=== PATIENT | female | born 1985 | race African-American/Black ===

== ENCOUNTER 2016-10-18 06:55 | Inpatient (IN) | payer OTHER ==
[2016-10-18] MEDS ORDERED: DEXTROSE 5%-LACTATED RINGERS 1,000 ML IV ONE (07:15)
[2016-10-18] MEDS ORDERED: BENZOCAINE 28 GM HEMORRHOIDAL OINTMENT TP PRN (07:18)
[2016-10-18] MEDS ORDERED: METHYLERGONOVINE MALEATE 0.2 MG/1 ML AMP IM PRN (07:18)
[2016-10-18] MEDS ORDERED: BISACODYL 10 MG SUPP.RECT RC PRN (07:18)
[2016-10-18] MEDS ORDERED: WITCH HAZEL 50% (TUCKS) 40 PAD/JAR PAD TP PRN (07:18)
[2016-10-18] MEDS ORDERED: BENZOCAINE 20% 57 GM BOTTLE TP PRN (07:18)
--- NOTE | 2016-10-18 07:23 | HP ---
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: Alzheimer's, CVA, Dementia, Migraine, Multiple Sclerosis, Peripheral Neuropathy, Parkinson's, Seizure, Syncope, TIA, Vertigo, Other Cardiovascular: No: AFIB, Aneurysm, Aortic Insufficiency, Aortic Stenosis, CAD, CHF, Deep Vein Thrombosis, HTN, Hyperlipdemia, CO, Mitral Insufficiency, Mitral Stenosis, Murmur, Pulmonary Hypertension, Other Pulmonary: No: Asthma, Bronchitis, Cancer, COPD, O2 Dependent, Pneumonia, Previously Intubated, Pulmonary Embolus, Pulmonary Fibrosis, Sleep Apnea, Other Gastrointestinal: No: Ascites, Cancer, Constipation, Crohn's Disease, Diverticulitis, Diverticulosis, Esophageal Varices, Gastritis, GERD, GI Bleed, Hemorrhoids, Hiatal Hernia, Inflamatory Bowel Disease, Irritable Bowel Disease, Pancreatitis, Peptic Ulcer Disease, Ulcerative Colitis, Other Hepatobiliary: No: Cirrhosis, Cholelithiasis, Cholecystitis, Choledocholithiasis , Hepatitis A, Hepatitis B, Hepatitis C, Other Renal/: No: Renal Failure, Renal Inusuff, BPH, Cancer, Hematuria, Hemodialysis , Neurogenic Bladder, Renal Calculi, UTI, Other Reproductive: No: Ectopic , Endometriosis, Fibroids, PID, Polycystic Ovary Syndrome, Postmenopausal, Other ...LMP: 10/24/12 Heme/Onc: No: Anemia, B12 Deficiency, Bleeding Disorder, Cancer, Current Chemotherapy, Current Radiation Therapy, Hemochromatosis, Hypercoaguable State, Myeloproliferative Synd, Sickle Cell Disease, Sickle Cell Trait, Thrombocytopenia, Other Infectious Disease: No: AIDS, C-Diff, Herpes Zoster, HIV, MRSA, STD's, Tuberculosis, VREF, Other Psych: No: Addictions, Anxiety, Bipolar, Depression, Panic, Psychosis, Schizophrenia, Other Musculoskeletal: No: Bursitis, Chronic low back pain, Hemiparesis, Hemiplegia, Osteoarthritis, Paraplegia, Other Rheumatology: No: Fibromyalgia, Gout, Lupus, Rheumatoid Arthritis, Sarcoidosis, Vasculitis, Other Endocrine: No: Audubon's Disease, Carson's Disease, Diabetes Insipidus, Diabetes Mellitus, Hyperparathyroidism, Hyperthyroidism, Hypothyroidism, Osteopenia, SIADH, Other Dermatology: No: Basal Cell, Cellulitis, Eczema, Melanoma, Psoriasis, Squamous Cell, Other - Past Surgical History Past Surgical History: No: None, AAA Repair, AICD, Amputation, Appendectomy, Arthrosocopy, AV Fistula/Graft, Bariatric Surgery, Breast Biopsy, Bypass, CABG, Carotid Endarterectomy, Cataract Removal, Cholecystectomy, Colectomy, Colonoscopy, Colostomy, Craniotomy, , Cystectomy, Hernia Repair, Hysterectomy, Ileal Conduit, Ileosotomy, Joint Replacement, Kidney Transplant, Laminectomy, Liver Transplant, Mastectomy, Nephrectomy, Oopherectomy, Orchiectomy, Permanent Pacemaker, Prostatectomy, Splenectomy, Stent, Thoracotomy , TURP, Tonsillectomy, Tubal Ligation, Upper Endoscopy, Valve Replacement, Vasectomy, Vein Stripping/Ligation - Smoking History Smoking history: Current every day smoker Have you smoked in the past 12 months: Yes Aproximately how many cigarettes per day: 5 - Alcohol/Substance Use Hx Alcohol Use: No - Social History History of Recent Travel: No Home Medications - Allergies Allergies/Adverse Reactions: Allergies Allergy/AdvReac Type Severity Reaction Status Date / Time No Known Allergies Allergy Verified 05/12/16 17:17 - Home Medications Home Medications: Ambulatory Orders Acetaminophen [Tylenol] 650 mg PO PRN 08/22/15 Ibuprofen [Motrin -] 800 mg PO TID #30 tablet 08/28/15 Review of Systems - Review of Systems Constitutional: reports: No Symptoms Eyes: reports: No Symptoms HENT: reports: No Symptoms Neck: reports: No Symptoms Cardiovascular: reports: No Symptoms Respiratory: reports: No Symptoms Gastrointestinal: reports: No Symptoms Genitourinary: reports: No Symptoms Integumentary: reports: No Symptoms Neurological: reports: No Symptoms Endocrine: reports: No Symptoms Hematology/Lymphatic: reports: No Symptoms Physical Examination Constitutional: Yes: Well Nourished Eyes: Yes: WNL HENT: Yes: WNL Neck: Yes: WNL Cardiovascular: Yes: WNL Respiratory: Yes: WNL Gastrointestinal: Yes: WNL ...Rectal Exam: Yes: WNL Renal/: Yes: WNL Breast(s): Yes: WNL Musculoskeletal: Yes: WNL Extremities: Yes: WNL Integumentary: Yes: WNL Neurological: Yes: WNL ...Motor Strength: WNL Assessment/Plan as above
--- NOTE | 2016-10-18 07:28 | PN ---
Progress Note (short form) - Note Progress Note: arom, thick meconium, 9cm, pt with ctx
[2016-10-18] MEDS ORDERED: ELECTROLYTE-148 SOLN 1,000 ML IV SCH (07:30)
--- NOTE | 2016-10-18 07:46 | PN ---
Progress Note (short form) - Note Progress Note: now anterior lip, bearing down, cat 1 tracing.
[2016-10-18 08:02] VITALS: BMI 26.9
[2016-10-18] MEDS: OXYTOCIN 20 UNITS in 0.9% NS 1,000 ML IV SCH ×2 (08:05→17:15)
--- NOTE | 2016-10-18 08:10 | PN ---
Delivery - Delivery Vaginal Delivery: No Problems Type of Anesthesia: None EBL (cc): 300 Delivery, Single - [place] Feeding Plan Initial Plan: Elected not to breastfeed exclusively throughout hospitalization
[2016-10-18] MEDS: IBUPROFEN 600 MG TABLET (FP) PO PRN ×2 (08:28→21:09)
[2016-10-18] MEDS: ACETAMINOPHEN 325 MG TABLET (FP) PO PRN ×3 (08:29→21:09)
[2016-10-18 09:06] LABS: BASOPHIL 0.2 % (0-2.0); MCH 30.5 pg (25.7-33.7); MEAN CELL VOLUME 89.9 fl (80-96); NEUTROPHILS 53.1 % (42.8-82.8); PLATELET COUNT 193 K/MM3 (134-434); RDW 13.5 % (11.6-15.6); WHITE BLOOD COUNT 6.6 K/mm3 (4.0-10.0)
[2016-10-18 09:16] LABS: INR 0.95 (0.82-1.09); PROTHROMBIN TIME (PATIENT) 10.4 SEC (9.98-11.88)
[2016-10-18 09:19] LABS: ACTIVATED PTT 24.7 SECONDS (26.9-34.4)
[2016-10-18 09:54] LABS: CALCIUM 8.1 mg/dL (8.5-10.1); COCKROFT - GAULT 124.8225; CREATININE 0.7 mg/dL (0.55-1.02)
[2016-10-18] MEDS ORDERED: IBUPROFEN 800 MG/8 ML IJ IVPB ONE (13:00)
[2016-10-19] MEDS: ACETAMINOPHEN 325 MG TABLET (FP) PO PRN (01:18)
[2016-10-19] MEDS: IBUPROFEN 600 MG TABLET (FP) PO PRN ×2 (01:18→21:18)
--- NOTE | 2016-10-19 08:10 | PN ---
Progress Note (short form) - Note Progress Note: ppd 1 doing well, no c/o CBC, BMP 10/18/16 08:00 Last Vital Signs Temp Pulse Resp BP Pulse Ox 97.5 F L 74 20 107/53 10/19/16 05:44 10/19/16 05:44 10/19/16 05:44 10/19/16 05:44 abdomen soft, non tender, uterus firm lochia mild no calf tenderness plan ambulate cbc
[2016-10-19 08:11] LABS: BASOPHIL 0.2 % (0-2.0); EOSINOPHIL 1.6 % (0-4.5); MCH 31.3 pg (25.7-33.7); MCHC 34.8 g/dl (32.0-36.0); MEAN PLT VOLUME 8.1 fl (7.5-11.1); NEUTROPHILS 57.6 % (42.8-82.8); PLATELET COUNT 185 K/MM3 (134-434); RDW 13.5 % (11.6-15.6); WHITE BLOOD COUNT 7.8 K/mm3 (4.0-10.0)
[2016-10-19] MEDS ORDERED: SENNOSIDES/DOCUSATE COMBO (SENNA PLUS) TABLET (UD) PO PRN (22:00)
--- NOTE | 2016-10-20 10:54 | PN ---
Post Progress Note - Subjective Subjective: aymptomatic Post Day: 2 Type of Delivery: Vital Signs: Vital Signs Temperature 98.1 F 10/19/16 22:00 Pulse Rate 94 H 10/19/16 22:00 Respiratory Rate 18 10/19/16 22:00 Blood Pressure 119/68 10/19/16 22:00 O2 Sat by Pulse Oximetry (%) Breast Exam: Yes: Soft. No: Engorged Uterus: Yes: Fundus Firm, Fundus below umbilicus, Non-tender Lochia: Yes: Rubra Lochia, amount: Moderate Extremities: Yes: Calves non-tender Perineum: Yes: Intact Activity: Ambulating - Labs Labs: CBC WBC 7.8 K/mm3 (4.0-10.0) 10/19/16 07:20 RBC 3.42 M/mm3 (3.60-5.2) L 10/19/16 07:20 Hgb 10.7 GM/dL (10.7-15.3) 10/19/16 07:20 Hct 30.8 % (32.4-45.2) L 10/19/16 07:20 MCV 90.0 fl (80-96) 10/19/16 07:20 MCHC 34.8 g/dl (32.0-36.0) 10/19/16 07:20 RDW 13.5 % (11.6-15.6) 10/19/16 07:20 Plt Count 185 K/MM3 (134-434) 10/19/16 07:20 MPV 8.1 fl (7.5-11.1) 10/19/16 07:20 Neutrophils % 57.6 % (42.8-82.8) 10/19/16 07:20 Lymphocytes % 32.2 % (8-40) 10/19/16 07:20 Monocytes % 8.4 % (3.8-10.2) 10/19/16 07:20 Eosinophils % 1.6 % (0-4.5) 10/19/16 07:20 Basophils % 0.2 % (0-2.0) 10/19/16 07:20 Assessment/Plan stable. plan discharge today.
[2016-10-20 11:13] VITALS: BP 129/72; PULSE 87; TEMP 98.3
--- NOTE | 2016-12-18 15:23 | DS ---
DATE OF ADMISSION: 10/18/2016 DATE OF DISCHARGE: 10/20/2016 The patient was seen throughout her hospital course, noted to be doing well, no issues or concerns. The patient was subsequently discharged home. FIDEL MERIDA M.D. DAVID/[id number]
== END 2016-10-20 11:00 | disposition home or self-care (01) | DRG 560 ==
LOC: JLDR 06:55 → J3W 09:42
PROVIDERS: ADMIT Obstetrics & Gynecology; ATTEND Obstetrics & Gynecology
PROC: 10E0XZZ Delivery of Products of Conception, External Approach (ICD-10-PCS; principal; 2016-10-18)
DX: O80 Encounter for full-term uncomplicated delivery (principal); Z3A.38 38 weeks gestation of pregnancy; Z37.0 Single live birth
CPT/HCPCS: 36415; 59409; 80048; 85025; 85610; 85730; 86593; 86850; 86900; 86901

== ENCOUNTER 2017-08-05 13:28 | Emergency (ER) | payer OTHER ==
[2017-08-05 13:42] VITALS: BP 97/67; PULSE 67; TEMP 97.4
--- NOTE | 2017-08-05 13:43 | PDOC ---
History of Present Illness - General Chief Complaint: Pain Stated Complaint: ABDOMINAL PAIN Time Seen by Provider: 08/05/17 13:42 History Source: Patient - History of Present Illness Initial Comments: 08/05/17 16:32 Patient is a 32 y.o. female with no PMH who presents to the ED c/o acute onset of diffuse "punching" abdominal pain with two episodes of NBNB emesis. Patient denies any associated diarrhea/constipation, fevers/chills. Patient states she was watching television and drinking tea when and had an urge to have a bowel movement with an accompanying sharp diffuse abdominal pain that radiated to her chest. The pain has persisted since that time prompting her visit to the ED. Patient cannot identify any relieving factor and notes she has limitedly been tolerating PO intake. Patient states her LMP was earlier this month. NKDA Surgical: none Social: 4 cigarettes daily, denies alcohol, denies recreational drugs Past History - Past Medical History Allergies/Adverse Reactions: Allergies Allergy/AdvReac Type Severity Reaction Status Date / Time No Known Allergies Allergy Verified 05/12/16 17:17 Home Medications: Ambulatory Orders Ondansetron [Zofran -] 8 mg PO TID #15 tablet 08/05/17 Asthma: No Cancer: No Cardiac Disorders: No COPD: No Diabetes: No HTN: No Seizures: No Thyroid Disease: No - Surgical History Abdominal Surgery: Yes (left inguinal hernia repair) - Suicide/Smoking/Psychosocial Hx Smoking Status: Yes Smoking History: Current every day smoker Have you smoked in the past 12 months: Yes Number of Cigarettes Smoked Daily: 5 Information on smoking cessation initiated: No 'Breaking Loose' booklet given: 05/12/16 Hx Alcohol Use: No Drug/Substance Use Hx: No Substance Use Type: None Hx Substance Use Treatment: No *Physical Exam - Vital Signs Last Vital Signs Temp Pulse Resp BP Pulse Ox 97.4 F L 67 18 97/67 100 08/05/17 13:36 08/05/17 13:36 08/05/17 13:36 08/05/17 13:36 08/05/17 13:36 - Physical Exam General Appearance: Yes: Nourished, Thin Neck: positive: Trachea midline, Supple Respiratory/Chest: positive: Lungs Clear, Normal Breath Sounds Cardiovascular: positive: S1, S2 Gastrointestinal/Abdominal: positive: Normal Bowel Sounds, Tender (diffuse TTP in all 4 abdominal quadrants), Guarding. negative: Protuberent, Distended, Rebound, Hernia, Mass Musculoskeletal: negative: CVA Tenderness (R), CVA Tenderness (L) Extremity: positive: Normal Capillary Refill, Normal Inspection Integumentary: positive: Normal Color, Dry, Warm Neurologic: positive: Fully Oriented, Alert ED Treatment Course - LABORATORY CBC & Chemistry Diagram: 08/05/17 14:00 08/05/17 14:00 Medical Decision Making - Medical Decision Making 08/05/17 16:43 Patient is a 32 y.o. non-toxic appearing female who presents with diffuse abdominal pain + 1 episode of emesis. Dyspepsia like symptoms suggest possible gastroparesis vs viral gastroenteritis. Bedside U/S negative for choledoclithiasis and shows normal sized CBD. As patient's pain persists will CT abdomen and reassess to r/o obstruction. 08/05/17 17:55 CT abdomen negative for obstruction or acute pathology including appendicitis, diverticulitis. Patient symptomatically improved will discharge home with return precautions and supportive care. 9 *DC/Admit/Observation/Transfer Diagnosis at time of Disposition: Abdominal pain - Discharge Dispostion Disposition: HOME Condition at time of disposition: Good Admit: No - Prescriptions Prescriptions: Ondansetron [Zofran -] 8 mg PO TID #15 tablet - Referrals - Patient Instructions Printed Discharge Instructions: DI for Gastritis Additional Instructions: You were evaluated today for abdominal pain. All of your labs showed no concerning findings and a CT scan of your abdomen showed no acute disease. Please make an appointment with your primary care doctor in the next 3-5 days for evaluation. You can take Zofran for your nausea. Advance your diet slowly as tolerated. Return to the ED for any new/worsening/concerning symptoms. - Post Discharge Activity
--- NOTE | 2017-08-05 13:54 | PDOC ---
Attending Attestation - HPI HPI: 08/05/17 15:28 The patient is a 32 year old female, with no significant past medical history, who presents to the emergency department with, sudden onset of diffuse abdominal pain beginning this morning. The patient reports she was at home this morning watching television when she felt an urge to have a bowel movement and the abdominal pain began. The patient reports the diffuse abdominal pain as a sharp pain that radiates up towards her chest. The patient also reports a decreased appetite and reports one episode of non bloody non bilious vomit prior to arrival. She denies recent fevers, chills, headache or dizziness. She denies recent, diarrhea or constipation. She denies recent dysuria, frequency, urgency or hematuria. She denies recent chest pain or shortness of breath. Allergies: NKA Documentation prepared by Bubba Knapp, acting as medical surgery nurse for Lakeisha Wood MD. - Physicial Exam PE: 08/05/17 16:38 GENERAL: +Appears uncomfortable. Awake, alert, and fully oriented. HEAD: No signs of trauma EYES: PERRLA, EOMI, sclera anicteric, conjunctiva clear ENT: +Dry mucosa. Auricles normal inspection, hearing grossly normal, nares patent, oropharynx clear without exudates. NECK: Normal ROM, supple, no lymphadenopathy, JVD, or masses LUNGS: Breath sounds equal, clear to auscultation bilaterally. No wheezes, and no crackles HEART: Regular rate and rhythm, normal S1 and S2, no murmurs, rubs or gallops ABDOMEN: +Diffuse tenderness with guarding. Soft, normoactive bowel sounds. No rebound. No masses EXTREMITIES: Normal range of motion, no edema. No clubbing or cyanosis. No cords, erythema, or tenderness NEUROLOGICAL: Cranial nerves II through XII grossly intact. Normal speech, normal gait SKIN: Warm, Dry, normal turgor, no rashes or lesions noted. <Bubba Knapp - Last Filed: 08/05/17 16:38> - Resident Resident Name: Kiara Li - ED Attending Attestation I have performed the following: I have examined & evaluated the patient, The case was reviewed & discussed with the resident, I agree w/resident's findings & plan, Exceptions are as noted - Medical Decision Making No acute findings on CT a/p. Pt reports improvement in symptoms. Stable for DC home. <Lakeisha Wood - Last Filed: 08/07/17 09:42>
[2017-08-05] MEDS ORDERED: METOCLOPRAMIDE HCL INJECTION 10 MG/2 ML VIAL ONE (14:07)
[2017-08-05] MEDS ORDERED: FAMOTIDINE 20 MG/50 ML IVPB 20 MG/50 ML MG IVPB ONE ×2 (14:08→15:21)
[2017-08-05] MEDS ORDERED: ONDANSETRON 4 MG/2 ML VIAL ONE (14:08)
[2017-08-05 14:27] LABS: BASO % 0.4 % (0-2.0); EOS % 0.4 % (0-4.5); HEMATOCRIT 39.3 % (32.4-45.2); LYMPH % 17.8 % (8-40); MCH 29.7 pg (25.7-33.7); MEAN CELL VOLUME 90.1 fl (80-96); MEAN PLT VOLUME 7.1 fl (7.5-11.1); MONO % 8.3 % (3.8-10.2); NEUT % 73.1 % (42.8-82.8); PLATELET COUNT 279 K/MM3 (134-434); RBC 4.36 M/mm3 (3.60-5.2); RDW 13.8 % (11.6-15.6); WHITE BLOOD COUNT 5.2 K/mm3 (4.0-10.0)
[2017-08-05 14:52] LABS: ALBUMIN 3.9 g/dl (3.4-5.0); ALK PHOS 64 U/L (45-117); ANION GAP 7 (8-16); BILIRUBIN,TOTAL 0.6 mg/dL (0.2-1.0); BLOOD UREA NITROGEN 6 mg/dL (7-18); CALCIUM 8.7 mg/dL (8.5-10.1); CHLORIDE 106 mmol/L (98-107); CO2 27 mmol/L (21-32); CREATININE 0.8 mg/dL (0.55-1.02); GLUCOSE,RANDOM 100 mg/dL (74-106); LIPASE 109 U/L (73-393); POTASSIUM 3.6 mmol/L (3.5-5.1); SGOT/AST 18 U/L (15-37); SGPT/ALT 20 U/L (12-78); SODIUM 140 mmol/L (136-145); TOT PROT 7.3 g/dl (6.4-8.2)
[2017-08-05] MEDS ORDERED: SODIUM CHLORIDE 1,000 ML IV STA (15:21)
[2017-08-05] MEDS ORDERED: ONDANSETRON 4 MG/2 ML VIAL IVPUSH ONE (15:21)
== END 2017-08-05 18:30 | disposition home or self-care (01) ==
LOC: JER 13:28
PROC: 3E033GC Introduction of Other Therapeutic Substance into Peripheral Vein, Percutaneous Approach (ICD-10-PCS; principal; 2017-08-05)
PROC: 3E033GC Introduction of Other Therapeutic Substance into Peripheral Vein, Percutaneous Approach (ICD-10-PCS; 2017-08-05)
DX: R10.84 Generalized abdominal pain (principal)
CPT/HCPCS: 36415; 74177-TC; 80053; 83690; 84703; 85025; 96365; 96375; 99283-25

== ENCOUNTER 2018-04-18 06:07 | Day surgery (SDC) | payer OTHER ==
[2018-04-17 12:26] VITALS: BMI 20.6
[2018-04-18 06:49] LABS: INR 1.08 (0.83-1.09); PROTHROMBIN TIME (PATIENT) 12.7 SEC (9.7-13.0)
[2018-04-18] MEDS ORDERED: SODIUM CHLORIDE 0.9% P/F 10 ML VIAL IJ ONE (07:21)
[2018-04-18] MEDS ORDERED: ceFAZolin SODIUM 1 GM VIAL ONE (07:21)
[2018-04-18] MEDS ORDERED: DEXAMETHASONE SOD PHOSPHATE 4 MG/1 ML VIAL ONE (07:21)
[2018-04-18] MEDS ORDERED: LIDOCAINE HCL/PF 2% SDV 5ML VIAL ONE (07:21)
[2018-04-18] MEDS ORDERED: MIDAZOLAM HCL 2 MG/2 ML SINGLE DOSE VIAL ONE (07:22)
[2018-04-18] MEDS ORDERED: PROPOFOL 20 ML ONE ×2 (07:22→08:01)
[2018-04-18] MEDS ORDERED: SUCCINYLCHOLINE CHLORIDE 200 MG/10 ML VIAL ONE (07:22)
--- NOTE | 2018-04-18 07:40 | HP ---
History & Physical Update - History History: No Change - Physical Physical: No Change - Assessment Assessment: No Change - Plan Plan: No Change
--- NOTE | 2018-04-18 07:45 | HP ---
Past Medical History - Primary Care Physician PCP:: Merrick Purvis - Admission Chief Complaint: cin3 , cervical dysplasia History of Present Illness: 33 yo f with hx of yasmine 3 for leep cone biopsy , ECC, ,rba has discussed 3with patient History Source: Patient Limitations to Obtaining History: No Limitations - Past Surgical History Hx Myomectomy: No Hx Transabdominal Cerclage: No - Smoking History Smoking history: Current every day smoker Have you smoked in the past 12 months: Yes Aproximately how many cigarettes per day: 7 - Alcohol/Substance Use Hx Alcohol Use: No - Social History History of Recent Travel: No Home Medications - Allergies Allergies/Adverse Reactions: Allergies Allergy/AdvReac Type Severity Reaction Status Date / Time No Known Allergies Allergy Verified 04/18/18 06:36 - Home Medications Home Medications: Ambulatory Orders NK [No Known Home Medication] 04/17/18 Review of Systems - Review of Systems Constitutional: reports: No Symptoms Eyes: reports: No Symptoms HENT: reports: No Symptoms Neck: reports: No Symptoms Cardiovascular: reports: No Symptoms Respiratory: reports: No Symptoms Gastrointestinal: reports: No Symptoms Genitourinary: reports: No Symptoms Breasts: reports: Lumps Musculoskeletal: reports: No Symptoms Integumentary: reports: No Symptoms Neurological: reports: No Symptoms Endocrine: reports: No Symptoms Hematology/Lymphatic: reports: No Symptoms Psychiatric: reports: No Symptoms Physical Exam-CIVIL PREPAREDNESS COORDINATOR Vital Signs: Vital Signs Temperature 97.9 F 04/18/18 06:37 Pulse Rate 58 L 04/18/18 06:37 Respiratory Rate 16 04/18/18 06:37 Blood Pressure 117/67 04/18/18 06:37 O2 Sat by Pulse Oximetry (%) 100 04/18/18 06:37 Constitutional: Yes: Well Nourished, No Distress, Calm Eyes: Yes: WNL, Conjunctiva Clear, EOM Intact HENT: Yes: WNL, Atraumatic, Normocephalic Neck: Yes: WNL, Supple, Trachea Midline Cardiovascular: Yes: WNL, Regular Rate and Rhythm Respiratory: Yes: WNL, Regular, CTA Bilaterally Gastrointestinal: Yes: WNL Renal/: Yes: WNL Pelvis: Yes: WNL External Genitalia: Yes: Normal Vaginal Exam: Yes: Normal Cervix: Yes: Normal Uterus: Yes: Normal Adnexa: Not Palpable: Left, Right Breast(s): Yes: WNL Musculoskeletal: Yes: WNL Extremities: Yes: WNL Edema: No Integumentary: Yes: WNL Neurological: Yes: WNL, Alert, Oriented ...Motor Strength: WNL Psychiatric: Yes: WNL, Alert, Oriented Problem List - Problem (1) Severe cervical dysplasia, histologically confirmed Code(s): D06.9 - CARCINOMA IN SITU OF CERVIX, UNSPECIFIED Assessment/Plan leep cone , ecc
[2018-04-18] MEDS ORDERED: ceFAZolin SODIUM 1 GM VIAL IVPB ONE (07:50)
[2018-04-18] MEDS ORDERED: KETOROLAC TROMETHAMINE 30 MG/1 ML VIAL ONE (08:03)
[2018-04-18] MEDS ORDERED: ONDANSETRON 4 MG/2 ML VIAL IVPUSH PRN (08:38)
[2018-04-18] MEDS ORDERED: IBUPROFEN 600 MG TABLET (FP) PO PRN (08:38)
[2018-04-18] MEDS ORDERED: oxyCODONE HCL 5 MG TABLET PO PRN (08:38)
[2018-04-18] MEDS ORDERED: IBUPROFEN 800 MG/8 ML IJ IVPB PRN (08:38)
[2018-04-18] MEDS ORDERED: ELECTROLYTE-148 SOLN 1,000 ML IV SCH (08:45)
--- NOTE | 2018-04-18 09:12 | OP ---
DATE OF OPERATION: 04/18/2018 PREOPERATIVE DIAGNOSIS: Left breast mass. POSTOPERATIVE DIAGNOSIS: Left breast mass. PROCEDURE: Excision of left breast mass. SURGEON: Brigette Mcfarlane MD ANESTHESIA: General. ESTIMATED BLOOD LOSS: Minimal. COMPLICATIONS: None. This was a sterile procedure. INDICATION FOR PROCEDURE: Patient presented with a palpable mass in the left breast 7 o'clock retroareolar location which has gotten infected a few times. She also had some findings on her mammogram and ultrasound that were resolved. We discussed the option of excision of this mass to prevent future infections. The procedure was discussed with all the questions answered. PROCEDURE IN DETAIL: Patient brought to [facility] in [place] and taken into the operating room where after induction of general anesthesia and IV antibiotics the left breast was prepped and draped in the usual sterile fashion. Ellipse of skin was taken radially in the left breast 7 o'clock location over the punctum that was part of the epidermoid cyst extending to the skin and this was excised en bloc and sent to Pathology for permanent section. Hemostasis assured with electrocautery. The parenchyma approximated with interrupted 3-0 Vicryl. Skin approximated with interrupted 3-0 Vicryl and running 4-0 Biosyn. A sterile dressing with Tegaderm was applied. She tolerated the procedure well. She was left then with Dr. Purvis to finish his part of the procedure. BRIGETTE CAUSEY M.D. RENAY/[id number]
[2018-04-18] MEDS ORDERED: IBUPROFEN 600 MG TABLET (FP) PO ONE (09:58)
[2018-04-18] MEDS ORDERED: LACTATED RINGERS SOLUTION 1,000 ML IV SCH (10:15)
[2018-04-18 13:30] VITALS: BP 107/58; PULSE 61; TEMP 98
--- NOTE | 2018-04-22 08:58 | OP ---
DATE OF OPERATION: 04/18/2018 PREOPERATIVE DIAGNOSIS: High grade cervical intraepithelial lesion, CAMERON 3. PROCEDURE: Loop electrosurgical excision procedure cone biopsy and endocervical curettage. SURGEON: Merrick Purvis MD ANESTHESIA: General. ESTIMATED BLOOD LOSS: 50 mL. DESCRIPTION OF PROCEDURE: The patient was taken to the operating room, and under adequate general anesthesia in dorsal lithotomy position, a Glass speculum was inserted into the vagina. Vagina and cervix were saturated with vinegar. Then, area of CAMERON was visualized. Then, Lugols solution was applied to the cervix, and area of CAMERON again was demarcated. Then, with the loop cautery, the CAMERON area was excised entirely, and the edges were trimmed. Then, endocervical curetting was done. Then, the LEEP creator was cauterized with ball cautery. Hemostasis was established. Monsels Solution was applied. No active bleeding was seen. Patient tolerated the procedure well, left the OR in good condition. Davida [id number]
--- NOTE | 2018-04-22 15:36 | PATH ---
Surgical Pathology Report Patient Name: WENDY RICE [facility]. Rec. #: [id number] /Age/Gender: 1985 (Age: 33) / F Account: [id number] Location: [facility] SURGICAL Taken: 04/18/2018 Received: 04/18/2018 Reported: 04/22/2018 Physicians: Davida Topete M.D. Specimen(s) Received A: LEFT BREAST EXCISION OF MASS B: LEEP CERVICAL BIOPSY C: ENDOCERVICAL CURETTINGS Clinical History Left breast mass/high-grade cervical dysplasia Final Diagnosis A. LEFT BREAST MASS, EXCISION: SKIN AND SUBCUTANEOUS TISSUE SHOWING ULCERATION, SEVERE ACUTE AND CHRONIC INFLAMMATION, HISTIOCYTIC REACTION WITH MULTINUCLEATED GIANT CELLS, PREDOMINANTLY IN THE DERMIS. ADJACENT BREAST TISSUE SHOWING MICROCYSTS, STROMAL FIBROSIS, SCLEROSING ADENOSIS, AND APOCRINE METAPLASIA. B. LEEP CERVICAL, BIOPSY: SQUAMOUS EPITHELIUM WITH FOCAL CAMERON 1 (CERVICAL INTRAEPITHELIAL NEOPLASIA GRADE 1). NO HIGH GRADE DYSPLASIA IDENTIFIED IN THE SUBMITTED MATERIAL. C. ENDOCERVICAL CURETTINGS: ENDOCERVICAL TISSUE WITH SQUAMOUS METAPLASIA. SEE COMMENT. Comment: Immunohistochemical stains Ki67 and P16 (at block C1) performed at [facility] ([id number]) support the diagnosis of squamous metaplasia. Positive and negative controls (internal if applicable) show appropriate results. Electronically Signed Garland Garnica M.D. Gross Description A. Received in formalin labeled "left breast excision of mass," is a 2.5 x 2.0 x 1.6 cm unoriented portion of fibroadipose tissue which is surfaced by a 2.2 x 0.8 cm brown, elliptical, unremarkable portion of skin. Sectioning reveals multiple foci of dense white fibrous tissue. No definitive mass is identified. The specimen is entirely and sequentially submitted from anterior to deep in 6 cassettes with the skin in cassette 1 and the deep in cassette 6. B. Received in formalin labeled "LEEP biopsy of cervix," are 4 hwang, unoriented portions of soft tissue ranging from 1.4 x 0.5 x 0.3 cm to 2.0 x 1.0 x 0.4 cm. The specimens are surfaced by a hwang, shiny and glistening mucosa. The specimens are inked blue, serially sectioned and entirely submitted in 4 cassettes. C. Received in formalin labeled "endocervical curettings," is a 0.3 x 0.2 x 0.1 cm aggregate of red-brown soft tissue fragments. The formalin is filtered and the specimen is entirely submitted in one cassette. 04/18/201804/18/2018
== END 2018-04-18 10:45 | disposition home or self-care (01) ==
LOC: JASU-SURG 06:07
PROVIDERS: ATTEND Surgery
PROC: 0UBC7ZX Excision of Cervix, Via Natural or Artificial Opening, Diagnostic (ICD-10-PCS; principal; 2018-04-18 07:30)
PROC: 0HBU0ZX Excision of Left Breast, Open Approach, Diagnostic (ICD-10-PCS; 2018-04-18 07:30)
DX: D06.9 Carcinoma in situ of cervix, unspecified (principal); N60.32 Fibrosclerosis of left breast; N60.22 Fibroadenosis of left breast; N64.89 Other specified disorders of breast; F17.210 Nicotine dependence, cigarettes, uncomplicated; N63.24 Unspecified lump in the left breast, lower inner quadrant
CPT/HCPCS: 36415; 84702; 85610; 88305-TC; 88307-TC; 94760

== ENCOUNTER 2019-04-05 08:11 | Inpatient (IN) | payer OTHER ==
[2019-04-05] MEDS ORDERED: AMPICILLIN - 2 GM in SODIUM CHLORIDE 100 ML IVPB ONE (08:30)
[2019-04-05] MEDS ORDERED: PROMETHAZINE HCL 25 MG/1 ML VIAL IVPUSH ONE (09:05)
[2019-04-05] MEDS ORDERED: BUTORPHANOL TARTRATE 1 MG/ML VIAL IVPB ONE (09:05)
[2019-04-05] MEDS ORDERED: DEXTROSE 5%-LACTATED RINGERS 1,000 ML IV SCH (09:15)
--- NOTE | 2019-04-05 09:28 | HP ---
Past Medical History - Primary Care Physician PCP:: Purnima Lorenzo - Admission Chief Complaint: 34 yrs , 39.5/7 weeks in labor ,. onset LP since 7.00 AM History of Present Illness: PNC at 4, [facility] pt non compliant, did not do her 36 weeks cultures & testing . had few visits in the clinic . 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 No: Hepatitis B, Hepatitis C Renal/: No: UTI Reproductive: Yes: Other (h/o abn pap smears . 10/2018 ascus-HPV neg 07/2015 : hgsil 2014 h/o LEEP Cone Bx) ...: 9 ...Para: 4 ...Term: 2 (G2 02/02/08 7' (40wks ) , G7 -10/18/16 5'7' (38wks ) ) ...: 2 (G3-03/10/09 (36 wks), G6 -08/26/15 (35.2wks)-4'10") ...Spon : 2 (G1 2004, G4-2013) ...Induced : 2 (G5-2014, & g8-2017) ...LMP: 07/19/18 ... Weeks Gestation by Dates: 37.2 ...EDC by Dates: 04/25/19 (mistaken Dates ) ...EDC by Sono: 04/07/19 (39.5 weeks by sono ) Heme/Onc: Yes: Anemia Infectious Disease: Yes: STD's (past h/o chlamydia) Psych: Yes: Addictions (marijuana) - Past Surgical History Past Surgical History: Yes: None Hx Myomectomy: No Hx Transabdominal Cerclage: No - Smoking History Smoking history: Current every day smoker Have you smoked in the past 12 months: Yes Aproximately how many cigarettes per day: 7 - Alcohol/Substance Use Hx Alcohol Use: No History of Substance Use: reports: Marijuana (pt states she stopped during pregn ) - Social History History of Recent Travel: No Home Medications - Allergies Allergies/Adverse Reactions: Allergies Allergy/AdvReac Type Severity Reaction Status Date / Time No Known Allergies Allergy Verified 04/05/19 11:44 - Home Medications Home Medications: Ambulatory Orders Prenat 115/Iron Fum/Folic/Dss [ 19 Tablet] 1 tab PO DAILY 02/12/19 Physical Exam - Maternity Vital Signs: Selected Entries 04/05/19 09:00 Temperature 98.3 F Pulse Rate 90 Blood Pressure 111/64 WT 140 LBS Constitutional: Yes: Well Nourished Eyes: Yes: WNL HENT: Yes: WNL, Normocephalic Neck: Yes: WNL, Trachea Midline Cardiovascular: Yes: WNL, Regular Rate and Rhythm Lungs: Clear to auscultation Breast(s): Yes: WNL - Abdominal Exam/OB Fundal Height: 37 Number of Fetuses: Single Presentation: Vertex Contractions: Yes Regularity: Regular (2-4 min) Intensity: Mild/Mod Monitor Mode: External Heart Rate (range): 130 Heart Rate Location: LLQ, Midline Category: I Accelerations: Uniform Decelerations: None - Vaginal Exam/OB Vaginal Bleediing: Bloody Show Dilatation (cm): 3 Effacement (%): 80 Amniotic Membrane Status: Intact Presentation: Vertex/Position Station: -3 - Physical Exam Musculoskeletal: Yes: WNL Extremities: Yes: WNL. No: Calf Tenderness Edema: No Integumentary: Yes: WNL, Tattoos Deep Tendon Reflex Grade: Normal +2 ...Motor Strength: WNL Psychiatric: Yes: WNL, Alert, Oriented - Labs Lab Results: Laboratory Tests 04/05/19 04/05/19 04/05/19 09:30 09:30 09:30 WBC 5.5 RBC 3.82 Hgb 12.3 Hct 35.8 Plt Count 227 PT with INR 11.10 INR 0.94 PTT (Actin FS) 25.4 Sodium 140 Potassium 3.8 Chloride 110 H Carbon Dioxide 21 Anion Gap 9 Creatinine 0.6 Calcium 8.6 Opiates Screen Methadone Screen Barbiturate Screen Phencyclidine Screen Ur Amphetamines Screen MDMA (Ecstasy) Screen Benzodiazepines Screen Cocaine Screen U Marijuana (THC) Screen RPR Titer Blood Type Antibody Screen 04/05/19 04/05/19 04/05/19 09:30 09:30 09:30 WBC RBC Hgb Hct Plt Count PT with INR INR PTT (Actin FS) Sodium Potassium Chloride Carbon Dioxide Anion Gap Creatinine Calcium Opiates Screen Negative Methadone Screen Negative Barbiturate Screen Negative Phencyclidine Screen Negative Ur Amphetamines Screen Negative MDMA (Ecstasy) Screen Negative Benzodiazepines Screen Negative Cocaine Screen Negative U Marijuana (THC) Screen Negative RPR Titer Nonreactive Blood Type B POSITIVE Antibody Screen Negative Problem List - Problems (1) with 39 completed weeks gestation Code(s): Z3A.39 - 39 WEEKS GESTATION OF (2) Labor established Code(s): PVG2233 - (3) Grand multipara in labor Code(s): O09.40 - SUPERVISION OF W GRAND MULTIPARITY, UNSP TRIMESTER Qualifiers: Trimester: third trimester Qualified Code(s): O09.43 - Supervision of with grand multiparity, third trimester Assessment/Plan 34 yrs , 39.5 weeks inlabor , gbs unknown , h/o marijuana use Plan GBS prophylaxis with IV Ampicillin trial vaginal delivery pt requests , iv pain meds ( stadol + Phenrgan ) prn
[2019-04-05 09:47] VITALS: BMI 26.4
[2019-04-05 09:49] LABS: BASO % 0.3 % (0-2.0); EOS % 1.6 % (0-4.5); HEMATOCRIT 35.8 % (32.4-45.2); HEMOGLOBIN 12.3 GM/dL (10.7-15.3); LYMPH % 32.2 % (8-40); MCH 32.2 pg (25.7-33.7); MCHC 34.3 g/dl (32.0-36.0); MEAN CELL VOLUME 93.9 fl (80-96); MEAN PLT VOLUME 7.4 fl (7.5-11.1); MONO % 7.8 % (3.8-10.2); NEUT % 58.1 % (42.8-82.8); PLATELET COUNT 227 K/MM3 (134-434); RBC 3.82 M/mm3 (3.60-5.2); RDW 13.2 % (11.6-15.6); WHITE BLOOD COUNT 5.5 K/mm3 (4.0-10.0)
[2019-04-05 09:57] LABS: INR 0.94 (0.83-1.09); PROTHROMBIN TIME (PATIENT) 11.1 SEC (9.7-13.0)
[2019-04-05 09:59] LABS: ACTIVATED PTT 25.4 SECONDS (25.2-36.5)
[2019-04-05 10:15] LABS: BLOOD UREA NITROGEN 5.8 mg/dL (7-18); CALCIUM 8.6 mg/dL (8.5-10.1); CREATININE 0.6 mg/dL (0.55-1.3); POTASSIUM 3.8 mmol/L (3.5-5.1)
[2019-04-05] MEDS ORDERED: BUTORPHANOL TARTRATE 1 MG/ML VIAL ONE ×2 (10:24)
[2019-04-05] MEDS ORDERED: PROMETHAZINE HCL 25 MG/1 ML VIAL ONE (10:24)
[2019-04-05] MEDS ORDERED: OXYTOCIN 20 UNITS in 0.9% NS 20 UNIT/1,000 ML INFUS.BAG IV ONE (10:33)
[2019-04-05] MEDS ORDERED: LIDOCAINE HCL 1% PRESERVATIVE FREE - 30ML VIAL ONE (10:33)
[2019-04-05 10:55] LABS: COCAINE, UR NEGATIVE ng/ml (CUTOFF=300); METHADONE, UR NEGATIVE ng/ml (CUTOFF=300); OPIATES, URI NEGATIVE ng/ml (CUTOFF=300); PHENCYCLIDINE,URINE NEGATIVE ng/ml (CUTOFF=25); URINE AMPHETAMINES NEGATIVE ng/ml (CUTOFF=500); URINE BARBITURATES NEGATIVE ng/ml (CUTOFF=200); URINE BENZODIAZEPINES NEGATIVE ng/ml (CUTOFF=200)
[2019-04-05] MEDS ORDERED: AMPICILLIN SODIUM 1 GM VIAL ONE (11:26)
[2019-04-05] MEDS ORDERED: AMPICILLIN - 1 GM in SODIUM CHLORIDE 100 ML IVPB SCH (12:30)
[2019-04-05] MEDS: OXYTOCIN 20 UNITS in 0.9% NS 20 UNIT/1,000 ML INFUS.BAG IV SCH ×2 (12:34→17:21)
--- NOTE | 2019-04-05 12:55 | PN ---
Progress Note, Labor Vaginal Exam #1 Labor Exam Date: 04/05/19 Labor Exam Time: 12:20 Heart Rate (range): 130 Dilatation: 10 Effacement (%): 100 Amniotic Membrane Status: Ruptured (SROM clear) Presentation: Vertex/Position Station: +3 Remarks: uc 2 min fhr cat-1 pt pushing
--- NOTE | 2019-04-05 13:01 | PN ---
Delivery - Delivery Vaginal Delivery: No Problems, Spontaneous (, baby girl, vx, Henry position, cord around neckx1 loose untangled before delivery of shoulder , oral nasal suction done at perineum .placenta & membranes delievered completely . perineum & vagina was intact . cord blood collected. 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 gbs unknown . non compliant for care pnc at [address] [place] [address] Iv Ampicillin x2 doses given for prophylaxis stadol + phenrgan given for labor analgesia Intrapartum couse uneventful
[2019-04-05] MEDS ORDERED: BENZOCAINE 20% 57 GM BOTTLE TP PRN (13:24)
[2019-04-05] MEDS ORDERED: WITCH HAZEL 50% (TUCKS) 40 PAD/JAR PAD TP PRN (13:24)
[2019-04-05] MEDS ORDERED: BISACODYL 10 MG SUPP.RECT RC PRN (13:24)
[2019-04-05] MEDS ORDERED: METHYLERGONOVINE MALEATE 0.2 MG/1 ML AMP IM PRN (13:24)
[2019-04-05] MEDS ORDERED: BENZOCAINE 28 GM HEMORRHOIDAL OINTMENT TP PRN (13:24)
[2019-04-05] MEDS ORDERED: oxyCODONE HCL 5 MG TABLET PO PRN (13:24)
[2019-04-05] MEDS: ACETAMINOPHEN 500 MG TABLET (FP) PO PRN (17:36)
[2019-04-05] MEDS: IBUPROFEN 600 MG TABLET (FP) PO PRN (17:37)
[2019-04-05] MEDS: FERROUS SO4 325 MG TABLET (FP) PO SCH (18:33)
[2019-04-06 07:47] LABS: BASO % 0.3 % (0-2.0); EOS % 1.7 % (0-4.5); HEMATOCRIT 31.3 % (32.4-45.2); LYMPH % 28.6 % (8-40); MCH 32.8 pg (25.7-33.7); MEAN CELL VOLUME 93.8 fl (80-96); MEAN PLT VOLUME 7.4 fl (7.5-11.1); MONO % 7.6 % (3.8-10.2); NEUT % 61.8 % (42.8-82.8); PLATELET COUNT 207 K/MM3 (134-434); RBC 3.34 M/mm3 (3.60-5.2); RDW 13.5 % (11.6-15.6)
--- NOTE | 2019-04-06 08:38 | PN ---
Post Progress Note - Subjective Subjective: no complains Post Day: 1 Type of Delivery: Vital Signs: Vital Signs Temperature 97.6 F 04/06/19 05:59 Pulse Rate 83 04/06/19 05:59 Respiratory Rate 20 04/06/19 05:59 Blood Pressure 90/48 L 04/06/19 05:59 O2 Sat by Pulse Oximetry (%) 100 04/05/19 13:30 Breast Exam: Yes: Soft, Other (left brast has lumpectomy scar at 7o'clock in areolar area , pt refuses to BF. counselled to bf ). No: Engorged, Cracked Nipples Uterus: Yes: Fundus Firm, Fundus @ umbilicus, Non-tender Lochia: Yes: Rubra Lochia, amount: Moderate Extremities: Yes: Calves non-tender Perineum: Yes: Intact Activity: Ambulating - Labs Labs: CBC WBC 7.0 K/mm3 (4.0-10.0) 04/06/19 07:15 RBC 3.34 M/mm3 (3.60-5.2) L 04/06/19 07:15 Hgb 11.0 GM/dL (10.7-15.3) 04/06/19 07:15 Hct 31.3 % (32.4-45.2) L 04/06/19 07:15 MCV 93.8 fl (80-96) 04/06/19 07:15 MCH 32.8 pg (25.7-33.7) 04/06/19 07:15 MCHC 35.0 g/dl (32.0-36.0) 04/06/19 07:15 RDW 13.5 % (11.6-15.6) 04/06/19 07:15 Plt Count 207 K/MM3 (134-434) 04/06/19 07:15 MPV 7.4 fl (7.5-11.1) L 04/06/19 07:15 Absolute Neuts (auto) 4.3 K/mm3 (1.5-8.0) 04/06/19 07:15 Neutrophils % 61.8 % (42.8-82.8) 04/06/19 07:15 Lymphocytes % 28.6 % (8-40) 04/06/19 07:15 Monocytes % 7.6 % (3.8-10.2) 04/06/19 07:15 Eosinophils % 1.7 % (0-4.5) 04/06/19 07:15 Basophils % 0.3 % (0-2.0) 04/06/19 07:15 Nucleated RBC % 0 % (0-0) 04/06/19 07:15 Problem List - Problems (1) with 39 completed weeks gestation Code(s): Z3A.39 - 39 WEEKS GESTATION OF (2) Labor established Code(s): LBN8690 - (3) Grand multipara in labor Code(s): O09.40 - SUPERVISION OF W GRAND MULTIPARITY, UNSP TRIMESTER Qualifiers: Trimester: third trimester Qualified Code(s): O09.43 - Supervision of with grand multiparity, third trimester (4) (normal spontaneous vaginal delivery) Code(s): O80 - ENCOUNTER FOR FULL-TERM UNCOMPLICATED DELIVERY (5) Encounter for care and examination after delivery Code(s): Z39.2 - ENCOUNTER FOR ROUTINE FOLLOW-UP Assessment/Plan stable . ct pp care plan discharge tomorrow.
[2019-04-06] MEDS: FERROUS SO4 325 MG TABLET (FP) PO SCH ×3 (08:42→17:35)
[2019-04-06] MEDS: IBUPROFEN 600 MG TABLET (FP) PO PRN ×2 (08:44→22:37)
[2019-04-06] MEDS: ACETAMINOPHEN 500 MG TABLET (FP) PO PRN ×2 (08:44→22:37)
[2019-04-06] MEDS: PRENATAL VITAMINS W/ FOLIC ACID TABLET (FP) PO SCH (09:56)
[2019-04-06] MEDS ORDERED: DIPHTH,PERTUSS(ACELL),TET 0.5 ML DISP.SYRIN IM ONE (10:00)
[2019-04-06] MEDS ORDERED: SENNOSIDES/DOCUSATE COMBO (SENNA PLUS) TABLET (UD) PO PRN (22:00)
--- NOTE | 2019-04-07 07:49 | DS ---
Physical Examination Vital Signs: Vital Signs Temperature 98.4 F 04/06/19 22:00 Pulse Rate 88 04/06/19 22:00 Respiratory Rate 18 04/06/19 22:00 Blood Pressure 124/71 04/06/19 22:00 O2 Sat by Pulse Oximetry (%) 100 04/05/19 13:30 Findings/Remarks: ambulating, breast feeding, tolerating PO, lochia decreased Constitutional: Yes: Well Nourished HENT: Yes: Atraumatic Neck: Yes: Supple Cardiovascular: Yes: Regular Rate and Rhythm Respiratory: Yes: Regular Gastrointestinal: Yes: Normal Bowel Sounds Renal/: Yes: WNL Breast(s): Yes: WNL Musculoskeletal: Yes: WNL Extremities: Yes: WNL Edema: Yes Edema: LLE: Trace, RLE: Trace Integumentary: Yes: WNL Neurological: Yes: Alert, Oriented ...Motor Strength: WNL Psychiatric: Yes: Alert, Oriented Labs: CBC, BMP 04/06/19 07:15 04/05/19 09:30 Discharge Summary Reason For Visit: LABOR Current Active Problems Encounter for care and examination after delivery (Acute) Grand multipara in labor (Acute) Labor established (Acute) (normal spontaneous vaginal delivery) (Acute) with 39 completed weeks gestation (Acute) Hospital Course: uncomplicated Condition: Stable - Instructions Diet, Activity, Other Instructions: Post Instructions DIET: Continue good diet high in protein, calcium, and iron rich foods. Drink at least eight (8) glasses of water daily in addition to other fluids. ct Regular diet MEDICATIONS: Continue vitamins and iron as previously directed. Motrin and Tylenol may be taken for minor discomfort. ACTIVITY: Mild to moderate exercise may be started in two (2) weeks. Take frequent rest periods. Resume normal activity after six (6) week check up. WOUND CARE OF OPERATIVE SITE: Continue use of perineal bottle until vaginal discharge stops. Keep area clean. Shower daily. Keep abdominal wound dry. Report any drainage or redness to physician. Tub baths, tampons and douches are not permitted for [address] Breast feeding & or Bottle feeding BREAST CARE: (For those that are not breast feeding): If engorgement occurs: Wear tight fitting bra. Take Tylenol or Motrin for pain. Apply cold packs (ice in bags to each breast ) FAMILY PLANNING: There are many control alternatives to pursue and they should be discussed at your first office visit. You may resume sexual activity after your six (6) week check up. (Remember, breast feeding is not a contraceptive) NEXT PHYSICIAN APPOINTMENT: Be certain to call for a four -six (4-6) week appointment, unless otherwise directed. at [address] [place] [address] DO ABNORMAL PAP FOLLOW UP post delivery Schedule BTL at visit Call Clinic or got to Emergency Dept if you have any of the following: Heavy vaginal bleeding Painful urination Leg pain Unusual odor noted to vaginal bleeding High fever Red streaking noted on breast Referrals: Purnima Lorenzo MD [Staff Physician] - Disposition: HOME - Home Medications Comprehensive Discharge Medication List: Ambulatory Orders Prenat 115/Iron Fum/Folic/Dss [ 19 Tablet] 1 tab PO DAILY 02/12/19 Acetaminophen [Tylenol .Extra-Strength -] 500 mg PO Q3H PRN tablet 04/06/19 Ferrous Sulfate [Feosol] 325 mg PO BIDWM tab 04/06/19 Ibuprofen [Motrin -] 200 mg PO Q4H PRN tablet 04/06/19 Vitamins (Sjr) - 1 tab PO DAILY tablet 04/06/19
[2019-04-07] MEDS: FERROUS SO4 325 MG TABLET (FP) PO SCH (09:02)
[2019-04-07] MEDS: PRENATAL VITAMINS W/ FOLIC ACID TABLET (FP) PO SCH (09:02)
[2019-04-07 10:05] VITALS: BP 111/72; PULSE 80; TEMP 98.2
== END 2019-04-07 12:05 | disposition home or self-care (01) | DRG 560 ==
LOC: JLDR 08:11 → J3W 13:56
PROVIDERS: ADMIT Obstetrics & Gynecology; ATTEND Obstetrics & Gynecology
PROC: 10E0XZZ Delivery of Products of Conception, External Approach (ICD-10-PCS; principal; 2019-04-05)
DX: O69.81X0 Labor and delivery complicated by cord around neck, without compression, not applicable or unspecified (principal); Z3A.39 39 weeks gestation of pregnancy; Z37.0 Single live birth
CPT/HCPCS: 36415; 59409; 80048; 80307; 85025; 85610; 85730; 86593; 86850; 86900; 86901; 87389; 90715

== ENCOUNTER 2020-09-05 19:40 | Inpatient (IN) | payer OTHER ==
[2020-09-05 21:04] VITALS: BMI 27.3
[2020-09-05] MEDS ORDERED: ELECTROLYTE-148 SOLN 1,000 ML IV SCH ×2 (21:30→22:00)
[2020-09-05] MEDS ORDERED: OXYTOCIN 30 UNITS in 0.9% NS 30 UNIT/500 ML INFUS.BAG IVPB SCH (22:00)
[2020-09-05] MEDS ORDERED: OXYTOCIN 30 UNITS in 0.9% NS 30 UNIT/500 ML INFUS.BAG IVPB ONE (22:14)
[2020-09-05 22:25] LABS: BASO % 0.1 % (0-2.0); EOS % 0.2 % (0-4.5); HEMATOCRIT 35.9 % (32.4-45.2); HEMOGLOBIN 12.5 GM/dL (10.7-15.3); LYMPH % 19.4 % (8-40); MCH 32.6 pg (25.7-33.7); MCHC 34.7 g/dl (32.0-36.0); MEAN PLT VOLUME 7.6 fl (7.5-11.1); MONO % 9.9 % (3.8-10.2); NEUT % 70.4 % (42.8-82.8); PLATELET COUNT 255 K/MM3 (134-434); RBC 3.81 M/mm3 (3.60-5.2); RDW 14.1 % (11.6-15.6); WHITE BLOOD COUNT 8.5 K/mm3 (4.0-10.0)
[2020-09-05 22:31] LABS: INR 0.95 (0.83-1.09); PROTHROMBIN TIME (PATIENT) 11.5 SEC (9.7-13.0)
[2020-09-05 22:34] LABS: ACTIVATED PTT 24.9 SECONDS (25.2-36.5)
[2020-09-05 22:43] LABS: COCAINE, UR NEGATIVE ng/ml (CUTOFF=300); METHADONE, UR NEGATIVE ng/ml (CUTOFF=300); OPIATES, URI NEGATIVE ng/ml (CUTOFF=300); URINE BENZODIAZEPINES NEGATIVE ng/ml (CUTOFF=200)
[2020-09-05 22:44] LABS: PHENCYCLIDINE,URINE NEGATIVE ng/ml (CUTOFF=25); URINE AMPHETAMINES NEGATIVE ng/ml (CUTOFF=500); URINE BARBITURATES NEGATIVE ng/ml (CUTOFF=200)
[2020-09-05 22:49] LABS: CALCIUM 8.4 mg/dL (8.5-10.1)
[2020-09-05 22:50] LABS: BLOOD UREA NITROGEN 5.7 mg/dL (7-18)
[2020-09-05 22:53] LABS: CREATININE 0.6 mg/dL (0.55-1.3)
[2020-09-05] MEDS ORDERED: LIDOCAINE HCL 1% PRESERVATIVE FREE - 30ML VIAL ONE (22:55)
[2020-09-05] MEDS ORDERED: OXYTOCIN 20 UNITS in 0.9% NS 20 UNIT/1,000 ML INFUS.BAG IV ONE (22:56)
[2020-09-05] MEDS ORDERED: OXYTOCIN 10 UNITS/ML VIAL ONE (23:19)
[2020-09-05] MEDS: OXYTOCIN 20 UNITS in 0.9% NS 20 UNIT/1,000 ML INFUS.BAG IV SCH (23:25)
[2020-09-05] MEDS ORDERED: BISACODYL 10 MG SUPP.RECT RC PRN (23:34)
[2020-09-05] MEDS ORDERED: METHYLERGONOVINE MALEATE 0.2 MG/1 ML AMP IM PRN (23:34)
[2020-09-05] MEDS ORDERED: BENZOCAINE 20% 57 GM BOTTLE TP PRN (23:34)
[2020-09-05] MEDS ORDERED: WITCH HAZEL 50% (TUCKS) 40 PAD/JAR PAD TP PRN (23:34)
[2020-09-05] MEDS ORDERED: BENZOCAINE 28 GM HEMORRHOIDAL OINTMENT TP PRN (23:34)
[2020-09-06] MEDS ORDERED: ACETAMINOPHEN 325 MG TABLET (FP) ONE (00:33)
[2020-09-06] MEDS ORDERED: IBUPROFEN 600 MG TABLET (FP) PO ONE (00:33)
[2020-09-06] MEDS: ACETAMINOPHEN 325 MG TABLET (FP) PO PRN ×3 (00:35→09:57)
[2020-09-06] MEDS: IBUPROFEN 600 MG TABLET (FP) PO PRN ×2 (00:35→04:14)
[2020-09-06] MEDS: OXYTOCIN 20 UNITS in 0.9% NS 20 UNIT/1,000 ML INFUS.BAG IV SCH (05:00)
[2020-09-06 09:14] LABS: BASO % 0.3 % (0-2.0); EOS % 0.2 % (0-4.5); HEMATOCRIT 36.6 % (32.4-45.2); HEMOGLOBIN 12.9 GM/dL (10.7-15.3); LYMPH % 18.8 % (8-40); MCH 32.6 pg (25.7-33.7); MCHC 35.1 g/dl (32.0-36.0); MEAN CELL VOLUME 92.8 fl (80-96); MEAN PLT VOLUME 7.8 fl (7.5-11.1); MONO % 8.8 % (3.8-10.2); NEUT % 71.9 % (42.8-82.8); PLATELET COUNT 229 K/MM3 (134-434); RBC 3.95 M/mm3 (3.60-5.2); RDW 14.2 % (11.6-15.6); WHITE BLOOD COUNT 10.7 K/mm3 (4.0-10.0)
[2020-09-06] MEDS: PRENATAL VITAMINS W/ FOLIC ACID TABLET (FP) PO SCH (09:57)
[2020-09-06] MEDS ORDERED: SENNOSIDES/DOCUSATE COMBO (SENNA PLUS) TABLET (UD) PO PRN (22:00)
[2020-09-07] MEDS: PRENATAL VITAMINS W/ FOLIC ACID TABLET (FP) PO SCH (09:26)
[2020-09-07] MEDS: ACETAMINOPHEN 325 MG TABLET (FP) PO PRN (09:28)
[2020-09-07 10:11] VITALS: BP 116/74; PULSE 86; TEMP 98.5
== END 2020-09-07 13:00 | disposition home or self-care (01) | DRG 560 ==
LOC: JDEL 19:40 → JLDR 20:05 → J3W 09-06 01:52
PROVIDERS: ADMIT Obstetrics & Gynecology; ATTEND Obstetrics & Gynecology
PROC: 10E0XZZ Delivery of Products of Conception, External Approach (ICD-10-PCS; principal; 2020-09-05)
PROC: 0HQ9XZZ Repair Perineum Skin, External Approach (ICD-10-PCS; 2020-09-05)
DX: O48.0 Post-term pregnancy (principal); Z37.0 Single live birth; O70.0 First degree perineal laceration during delivery; O69.81X0 Labor and delivery complicated by cord around neck, without compression, not applicable or unspecified; Z3A.40 40 weeks gestation of pregnancy; Z86.19 Personal history of other infectious and parasitic diseases; F17.210 Nicotine dependence, cigarettes, uncomplicated; F12.10 Cannabis abuse, uncomplicated
CPT/HCPCS: 36415; 59409; 80048; 80307; 82962; 85025; 85610; 85730; 86780; 86850; 86900; 86901; C9803; U0003

== ENCOUNTER 2021-07-05 22:26 | Emergency (ER) | payer OTHER ==
[2021-07-05 22:35] VITALS: BP 109/66; PULSE 86; TEMP 98.4; BMI 22.6
[2021-07-05] MEDS ORDERED: LIDOCAINE 5% TOPICAL PATCH TP ONE (23:09)
[2021-07-05] MEDS ORDERED: ACETAMINOPHEN 1000 MG/100 ML BAG IVPB ONE (23:09)
[2021-07-05] MEDS ORDERED: ACETAMINOPHEN INJECTION 100 ML IVPB ONE (23:58)
[2021-07-05] MEDS ORDERED: LIDOCAINE 5% TOPICAL PATCH ONE ×2 (23:58)
[2021-07-06] MEDS ORDERED: METHOCARBAMOL 500 MG TABLET PO ONE (00:18)
[2021-07-06] MEDS ORDERED: METHOCARBAMOL 500 MG TABLET ONE (00:25)
[2021-07-06 01:04] LABS: BASO % 0.6 % (0-2.0); EOS % 2.5 % (0-4.5); HEMATOCRIT 37.7 % (32.4-45.2); HEMOGLOBIN 12.9 GM/dL (10.7-15.3); LYMPH % 49.5 % (8-40); MCH 29.6 pg (25.7-33.7); MCHC 34.3 g/dl (32.0-36.0); MEAN CELL VOLUME 86.5 fl (80-96); MEAN PLT VOLUME 7.7 fl (7.5-11.1); MONO % 19.8 % (3.8-10.2); NEUT % 27.6 % (42.8-82.8); PLATELET COUNT 287 10^3/uL (134-434); RBC 4.36 M/mm3 (3.60-5.2); RDW 15.1 % (11.6-15.6); WHITE BLOOD COUNT 3.7 K/mm3 (4.0-10.0)
[2021-07-06 01:21] LABS: CHLORIDE 107 mmol/L (98-107); SODIUM 138 mmol/L (136-145)
[2021-07-06 01:23] LABS: CALCIUM 8.7 mg/dL (8.5-10.1)
[2021-07-06 01:25] LABS: ANION GAP 5 MMOL/L (8-16); BLOOD UREA NITROGEN 8.2 mg/dL (7-18); CO2 27 mmol/L (21-32); GLUCOSE,RANDOM 89 mg/dL (74-106); LIPASE 169 U/L (73-393)
[2021-07-06 01:27] LABS: SGOT/AST 19 U/L (15-37); SGPT/ALT 24 U/L (13-61)
[2021-07-06 01:28] LABS: CREATININE 0.8 mg/dL (0.55-1.3)
[2021-07-06 01:29] LABS: BILIRUBIN,TOTAL 0.4 mg/dL (0.2-1); TOT PROT 7.5 g/dl (6.4-8.2)
[2021-07-06 01:31] LABS: ALK PHOS 75 U/L (45-117)
[2021-07-06] MEDS ORDERED: KETOROLAC TROMETHAMINE 15 MG/ML VIAL IVPUSH ONE (01:32)
[2021-07-06] MEDS ORDERED: KETOROLAC TROMETHAMINE 30 MG/1 ML VIAL ONE (01:43)
== END 2021-07-06 03:00 | disposition home or self-care (01) ==
LOC: JER 22:26
PROC: 3E0333Z Introduction of Anti-inflammatory into Peripheral Vein, Percutaneous Approach (ICD-10-PCS; principal; 2021-07-05)
DX: U07.1 COVID-19 (principal); K80.20 Calculus of gallbladder without cholecystitis without obstruction; D72.819 Decreased white blood cell count, unspecified
CPT/HCPCS: 36415; 71046-TC-FY; 76705-TC; 80053; 82550; 82553; 83690; 84484; 84703; 85025; 93005; 93010; 99285-25; C9803-CS; U0003; U0005

== ENCOUNTER 2022-01-04 14:07 | Emergency (ER) | payer OTHER ==
[2022-01-04 14:33] VITALS: BMI 20.2
[2022-01-04] MEDS ORDERED: SODIUM CHLORIDE 0.9% 500 ML INFUS.BAG IV ONE (16:17)
[2022-01-04] MEDS ORDERED: ACETAMINOPHEN 1000 MG/100 ML BAG IVPB ONE (16:17)
[2022-01-04] MEDS ORDERED: MAG HYDROX/AL HYDROX/SIMETH 30 ML UNIT-DOSE CUP PO ONE (16:17)
[2022-01-04] MEDS ORDERED: ONDANSETRON 4 MG/2 ML VIAL IVPUSH ONE (16:17)
[2022-01-04] MEDS ORDERED: ACETAMINOPHEN INJECTION 100 ML IVPB ONE (17:00)
[2022-01-04] MEDS ORDERED: MAG HYDROX/AL HYDROX/SIMETH 30 ML UNIT-DOSE CUP ONE (17:00)
[2022-01-04] MEDS ORDERED: ONDANSETRON 4 MG/2 ML VIAL ONE (17:00)
[2022-01-04 18:25] LABS: HEMATOCRIT 41.2 % (32.4-45.2); HEMOGLOBIN 13.6 GM/dL (10.7-15.3); MCH 27.6 pg (25.7-33.7); MCHC 32.9 g/dl (32.0-36.0); MEAN CELL VOLUME 83.8 fl (80-96); MEAN PLT VOLUME 7.7 fl (7.5-11.1); PLATELET COUNT 331 10^3/uL (134-434); RBC 4.92 M/mm3 (3.60-5.2); RDW 15.9 % (11.6-15.6); WHITE BLOOD COUNT 10.7 K/mm3 (4.0-10.0)
[2022-01-04 18:41] LABS: ALBUMIN 4.1 g/dl (3.4-5.0); BLOOD UREA NITROGEN 17.2 mg/dL (7-18); CALCIUM 8.8 mg/dL (8.5-10.1)
[2022-01-04 18:44] LABS: CREATININE 0.7 mg/dL (0.55-1.3)
[2022-01-04 18:46] LABS: BILIRUBIN,TOTAL 0.8 mg/dL (0.2-1)
[2022-01-04 19:23] LABS: ANISOCYTOSIS 0; HELMET CELLS 0; HOWELL-JOLLY BODIES 0; MACROCYTOSIS 0; OVALOCYTE 0; PLATELET ESTIMATE NORMAL; ROULEAU 0; SICKELED CELLS 0; TARGET CELLS 0; TEAR DROP CELLS 0; TOXIC GRANULATION 0
[2022-01-04 19:48] VITALS: BP 100/58; PULSE 77; TEMP 98.5
[2022-01-04] MEDS ORDERED: FAMOTIDINE 20 MG/50 ML IVPB 20 MG/50 ML MG IVPB SCH (22:00)
== END 2022-01-04 19:49 | disposition home or self-care (01) ==
LOC: JER 14:07
PROC: 3E0333Z Introduction of Anti-inflammatory into Peripheral Vein, Percutaneous Approach (ICD-10-PCS; principal; 2022-01-04)
PROC: 3E033GC Introduction of Other Therapeutic Substance into Peripheral Vein, Percutaneous Approach (ICD-10-PCS; 2022-01-04)
DX: R11.2 Nausea with vomiting, unspecified (principal); R19.7 Diarrhea, unspecified
CPT/HCPCS: 36415; 80053; 83690; 84703; 85025; 99284-25

== ENCOUNTER 2022-12-18 17:07 | Emergency (ER) | payer OTHER ==
[2022-12-18 17:13] VITALS: BP 100/60; PULSE 79; RESP 18; TEMP 98.2; BMI 20.1
[2022-12-18] MEDS ORDERED: ACETAMINOPHEN 1000 MG/100 ML BAG IVPB ONE (17:48)
[2022-12-18] MEDS ORDERED: ONDANSETRON 4 MG/2 ML VIAL IVPUSH ONE (17:48)
[2022-12-18] MEDS ORDERED: ONDANSETRON 4 MG/2 ML VIAL ONE (17:57)
[2022-12-18] MEDS ORDERED: ACETAMINOPHEN INJECTION 100 ML IVPB ONE (17:57)
[2022-12-18 19:06] LABS: BASO % 0.3 % (0-2.0); EOS % 1.5 % (0-4.5); HEMATOCRIT 34.3 % (32.4-45.2); HEMOGLOBIN 11.1 GM/dL (10.7-15.3); LYMPH % 36.3 % (8-40); MCH 27.1 pg (25.7-33.7); MCHC 32.5 g/dl (32.0-36.0); MEAN CELL VOLUME 83.3 fl (80-96); MEAN PLT VOLUME 7.6 fl (7.5-11.1); MONO % 7.8 % (3.8-10.2); NEUT % 54.1 % (42.8-82.8); PLATELET COUNT 317 10^3/uL (134-434); RBC 4.12 M/mm3 (3.60-5.2); RDW 16.3 % (11.6-15.6); WHITE BLOOD COUNT 5.4 K/mm3 (4.0-10.0)
[2022-12-18 19:14] LABS: EPI CELLS 8 /uL (0-25.1); HYALINE CASTS 1 /uL (0-3.1); URINE APPEARANCE CLEAR; URINE BACTERIA 46 /uL (0-1359); URINE BILIRUBIN NEGATIVE (NEGATIVE); URINE COLOR YELLOW; URINE GLUCOSE (UA) NEGATIVE (NEGATIVE); URINE KETONE NEGATIVE (NEGATIVE); URINE LEUK ESTERASE NEGATIVE (NEGATIVE); URINE NITRITE NEGATIVE (NEGATIVE); URINE PROTEIN NEGATIVE (NEGATIVE); URINE RBC 298 /uL (0-23.9); URINE UROBILINOGEN 0.2 mg/dL (0.2-1.0); URINE WBC 6 /uL (0-25.8)
[2022-12-18] MEDS ORDERED: LACTATED RINGERS SOLUTION 1000 ML INFUS.BAG IV ONE (19:23)
[2022-12-18 19:24] LABS: CHLORIDE 108 mmol/L (98-107); POTASSIUM 4.4 mmol/L (3.5-5.1); SODIUM 144 mmol/L (136-145)
[2022-12-18 19:26] LABS: CALCIUM 8.6 mg/dL (8.5-10.1)
[2022-12-18 19:27] LABS: ALBUMIN 3.5 g/dl (3.4-5.0); ANION GAP 8 MMOL/L (8-16); BLOOD UREA NITROGEN 7.6 mg/dL (7-18); CO2 28 mmol/L (21-32); GLUCOSE,RANDOM 86 mg/dL (74-106); MAGNESIUM 2.1 mg/dL (1.8-2.4)
[2022-12-18 19:30] LABS: CREATININE 0.9 mg/dL (0.55-1.3); SGOT/AST 21 U/L (15-37); SGPT/ALT 27 U/L (13-61)
[2022-12-18 19:32] LABS: BILIRUBIN,TOTAL 0.9 mg/dL (0.2-1); TOT PROT 6.8 g/dl (6.4-8.2)
[2022-12-18 19:33] LABS: ALK PHOS 62 U/L (45-117)
== END 2022-12-18 23:39 | disposition home or self-care (01) ==
LOC: JER 17:07
PROC: 3E033NZ Introduction of Analgesics, Hypnotics, Sedatives into Peripheral Vein, Percutaneous Approach (ICD-10-PCS; principal; 2022-12-18)
PROC: 3E033GC Introduction of Other Therapeutic Substance into Peripheral Vein, Percutaneous Approach (ICD-10-PCS; 2022-12-18)
DX: M54.9 Dorsalgia, unspecified (principal); R10.11 Right upper quadrant pain; R11.0 Nausea
CPT/HCPCS: 36415; 74177-TC; 80053; 81003; 83735; 84702; 85025; 87086; 99285-25; Q9967

== ENCOUNTER 2023-10-12 21:23 | Emergency (ER) | payer OTHER ==
[2023-10-12 21:34] VITALS: BP 104/58; PULSE 88; RESP 18; TEMP 98.2; BMI 21.9
[2023-10-12] MEDS ORDERED: ACETAMINOPHEN INJECTION 100 ML IVPB ONE (21:45)
[2023-10-12] MEDS: SODIUM CHLORIDE 0.9% 500 ML INFUS.BAG IV ONE (22:01)
[2023-10-12] MEDS: ACETAMINOPHEN 1000 MG/100 ML BAG IVPB ONE (22:05)
[2023-10-12] MEDS ORDERED: MAG HYDROX/AL HYDROX/SIMETH 30 ML UNIT-DOSE CUP ONE (22:06)
[2023-10-12] MEDS ORDERED: ONDANSETRON 4 MG/2 ML VIAL ONE (22:06)
[2023-10-12] MEDS: MAG HYDROX/AL HYDROX/SIMETH 30 ML UNIT-DOSE CUP PO ONE (22:07)
[2023-10-12 22:08] LABS: BASO % 0.4 % (0-2.0); EOS % 0.8 % (0-4.5); HEMATOCRIT 38.9 % (32.4-45.2); LYMPH % 32.2 % (8-40); MCHC 33.3 g/dl (32.0-36.0); MEAN CELL VOLUME 83.9 fl (80-96); MEAN PLT VOLUME 6.7 fl (7.5-11.1); MONO % 9.2 % (3.8-10.2); NEUT % 57.4 % (42.8-82.8); PLATELET COUNT 362 10^3/uL (134-434); RBC 4.64 M/mm3 (3.60-5.2); RDW 16.7 % (11.6-15.6); WHITE BLOOD COUNT 6.1 K/mm3 (4.0-10.0)
[2023-10-12] MEDS: ONDANSETRON 4 MG/2 ML VIAL IVPUSH ONE (22:08)
[2023-10-12 22:31] LABS: ALBUMIN 3.8 g/dl (3.4-5.0); BLOOD UREA NITROGEN 6.3 mg/dL (7-18); MAGNESIUM 2.1 mg/dL (1.8-2.4)
[2023-10-12 22:33] LABS: CREATININE 0.6 mg/dL (0.55-1.3); PHOSPHOROUS 3.3 mg/dL (2.5-4.9)
[2023-10-12 22:35] LABS: BILIRUBIN,TOTAL 1.7 mg/dL (0.2-1); TOT PROT 7.6 g/dl (6.4-8.2)
== END 2023-10-13 00:15 | disposition home or self-care (01) ==
LOC: JER 21:23
PROC: 3E033NZ Introduction of Analgesics, Hypnotics, Sedatives into Peripheral Vein, Percutaneous Approach (ICD-10-PCS; principal; 2023-10-12)
PROC: 3E033GC Introduction of Other Therapeutic Substance into Peripheral Vein, Percutaneous Approach (ICD-10-PCS; 2023-10-12)
DX: O99.611 Diseases of the digestive system complicating pregnancy, first trimester (principal); K80.20 Calculus of gallbladder without cholecystitis without obstruction; O26.891 Other specified pregnancy related conditions, first trimester; R10.11 Right upper quadrant pain; R10.13 Epigastric pain; R11.0 Nausea; Z3A.01 Less than 8 weeks gestation of pregnancy
CPT/HCPCS: 36415; 76705-TC; 76817-TC; 80053; 83690; 83735; 84100; 84702; 85025; 99284-25; J0131

== ENCOUNTER 2024-05-26 07:05 | Inpatient (IN) | payer OTHER ==
[2024-05-26] MEDS: ELECTROLYTE-148 SOLN 1,000 ML IV SCH (07:45)
[2024-05-26 08:08] LABS: BASO % 0.5 % (0-2.0); EOS % 1.3 % (0-4.5); HEMATOCRIT 31.9 % (32.4-45.2); HEMOGLOBIN 11.2 GM/dL (10.7-15.3); LYMPH % 21.7 % (8-40); MCH 31.6 pg (25.7-33.7); MCHC 35.1 g/dl (32.0-36.0); MEAN CELL VOLUME 89.9 fl (80-96); MEAN PLT VOLUME 7.2 fl (7.5-11.1); MONO % 12.5 % (3.8-10.2); PLATELET COUNT 185 10^3/uL (134-434); RBC 3.55 M/mm3 (3.60-5.2); RDW 18.6 % (11.6-15.6); WHITE BLOOD COUNT 5.4 K/mm3 (4.0-10.0)
[2024-05-26 08:27] LABS: INR 0.95 (0.83-1.09); PROTHROMBIN TIME (PATIENT) 10.7 SEC (9.7-13.0)
[2024-05-26 08:30] LABS: ACTIVATED PTT 24.4 SECONDS (25.2-36.5)
[2024-05-26 08:41] LABS: CHLORIDE 109 mmol/L (98-107); POTASSIUM 3.7 mmol/L (3.5-5.1); SODIUM 143 mmol/L (136-145)
[2024-05-26 08:43] LABS: ANION GAP 12 mmol/L (4-13); BLOOD UREA NITROGEN 6.3 mg/dL (7-18); CALCIUM 8.6 mg/dL (8.5-10.1); CO2 21 mmol/L (21-32)
[2024-05-26 08:44] LABS: GLUCOSE,RANDOM 90 mg/dL (74-106)
[2024-05-26 08:47] LABS: CREATININE 0.7 mg/dL (0.55-1.3)
[2024-05-26 08:53] VITALS: BMI 26.6
[2024-05-26] MEDS ORDERED: OXYTOCIN 30 UNITS in 0.9% NS 30 UNIT/500 ML INFUS.BAG IVPB ONE (09:03)
[2024-05-26] MEDS ORDERED: AMPICILLIN SODIUM 2 GM VIAL ONE (09:03)
[2024-05-26] MEDS: AMPICILLIN - 2 GM in SODIUM CHLORIDE 100 ML IVPB ONE (09:10)
[2024-05-26] MEDS: OXYTOCIN 30 UNITS in 0.9% NS 30 UNIT/500 ML INFUS.BAG IVPB SCH (09:15)
[2024-05-26] MEDS: PRENATAL VITAMINS W/ FOLIC ACID TABLET (FP) PO SCH (10:00)
[2024-05-26] MEDS ORDERED: BUTORPHANOL TARTRATE 2 MG/ML VIAL ONE (10:37)
[2024-05-26] MEDS ORDERED: PROMETHAZINE HCL 25 MG/1 ML VIAL ONE (10:37)
[2024-05-26] MEDS: BUTORPHANOL TARTRATE 2 MG/ML VIAL IVPB ONE (10:45)
[2024-05-26] MEDS: PROMETHAZINE HCL 25 MG/1 ML VIAL IVPB ONE (10:45)
[2024-05-26] MEDS ORDERED: AMPICILLIN SODIUM 1 GM VIAL ONE (13:36)
[2024-05-26] MEDS: AMPICILLIN - 1 GM in SODIUM CHLORIDE 100 ML IVPB SCH (13:40)
[2024-05-26] MEDS ORDERED: OXYTOCIN 20 UNITS in 0.9% NS 20 UNIT/1,000 ML INFUS.BAG IV ONE (15:19)
[2024-05-26] MEDS ORDERED: IBUPROFEN 600 MG TABLET (FP) PO ONE (15:55)
[2024-05-26] MEDS: OXYTOCIN 20 UNITS in 0.9% NS 20 UNIT/1,000 ML INFUS.BAG IV SCH (16:00)
[2024-05-26] MEDS: IBUPROFEN 600 MG TABLET (FP) PO PRN (16:00)
[2024-05-26] MEDS ORDERED: ACETAMINOPHEN 325 MG TABLET (FP) PO PRN (16:13)
[2024-05-26] MEDS ORDERED: BENZOCAINE 20% 57 GM BOTTLE TP PRN (16:13)
[2024-05-26] MEDS ORDERED: METHYLERGONOVINE MALEATE 0.2 MG/1 ML AMP IM PRN (16:13)
[2024-05-26] MEDS ORDERED: BENZOCAINE 28 GM HEMORRHOIDAL OINTMENT TP PRN (16:13)
[2024-05-26] MEDS ORDERED: WITCH HAZEL 50% (TUCKS) 40 PAD/JAR PAD TP PRN (16:13)
[2024-05-26] MEDS ORDERED: BISACODYL 10 MG SUPP.RECT RC PRN (16:13)
[2024-05-26 16:36] LABS: CORD BASE EXCESS -4.2 mmol/L (0-2); CORD HCO3 21.3 mmHg (20-29); CORD HCO3 23.6 mmHg (20-29); CORD PCO2 43.7 mmHg (30-78); CORD PCO2 53.5 mmHg (30-78); CORD pH 7.262 (7.14-7.44); CORD pH 7.305 (7.14-7.44)
[2024-05-26 17:39] VITALS: RESP 18
[2024-05-26] MEDS: oxyCODONE HCL 5 MG TABLET PO PRN (19:09)
[2024-05-27 07:54] LABS: BASO % 0.4 % (0-2.0); EOS % 1.1 % (0-4.5); HEMATOCRIT 31.7 % (32.4-45.2); HEMOGLOBIN 10.9 GM/dL (10.7-15.3); LYMPH % 25.3 % (8-40); MCH 31.4 pg (25.7-33.7); MCHC 34.3 g/dl (32.0-36.0); MEAN CELL VOLUME 91.7 fl (80-96); MEAN PLT VOLUME 7.4 fl (7.5-11.1); MONO % 12.6 % (3.8-10.2); NEUT % 60.6 % (42.8-82.8); PLATELET COUNT 179 10^3/uL (134-434); RBC 3.46 M/mm3 (3.60-5.2); RDW 18.4 % (11.6-15.6); WHITE BLOOD COUNT 7.1 K/mm3 (4.0-10.0)
[2024-05-27] MEDS ORDERED: SENNOSIDES/DOCUSATE COMBO (SENNA PLUS) TABLET (UD) PO PRN (22:00)
[2024-05-28 10:59] VITALS: BP 120/80; PULSE 70; TEMP 98.2
== END 2024-05-28 13:30 | disposition home or self-care (01) | DRG 807 ==
LOC: JLDR 07:05 → J3W 17:56
PROVIDERS: ADMIT Obstetrics & Gynecology; ATTEND Obstetrics & Gynecology
PROC: 10E0XZZ Delivery of Products of Conception, External Approach (ICD-10-PCS; principal; 2024-05-26)
DX: O48.0 Post-term pregnancy (principal); Z37.0 Single live birth; O99.820 Streptococcus B carrier state complicating pregnancy; Z3A.40 40 weeks gestation of pregnancy
CPT/HCPCS: 36415; 36600; 59409; 80048; 82803; 85025; 85610; 85730; 86780; 86850; 86900; 86901